=== PATIENT | female | born 1975 | race Asian ===

== ENCOUNTER → 2017-06-26 | Outpatient (CLI) | payer OTHER | END | disposition home or self-care (01) | LOC: KCIC MAMMO 14:39 | DX: Z12.31 Encounter for screening mammogram for malignant neoplasm of breast (principal) | CPT/HCPCS: 77067 ==

== ENCOUNTER → 2018-07-05 | Outpatient (CLI) | payer OTHER ==
--- NOTE | 2018-07-05 11:22 | KCIC ---
Bilateral digital screening mammograms: Reason for examination: Routine screening. Comparison is made to previous studies dated 06/26/2017 and 05/12/2016. Interpretation was made with the benefit of CAD. The skin and nipples show no abnormalities. No abnormal axillary lymph nodes are seen. Bilateral breast implants remain in place. The breast parenchyma is heterogeneously dense. (Breast density: Category C.) There continues to be some nodularity to the parenchyma medially in the right breast seen on cc view which is stable. There is however suggestion of a new nodular density present laterally in the left breast on cc view measuring 6.7 mm in size. This is not definitely seen on oblique view however and could represent some superimposition of tissues. Recommend further evaluation with coned compression views and ultrasound. There are no other new dominant masses, suspicious calcifications or architectural distortion. Impression: Possible new nodule in the left breast on CC view laterally measuring 6.7 mm in size. Recommend further evaluation with coned compression views and ultrasound. Your patient's mammogram demonstrates that she has dense breast tissue (breast density category C or D), which could hide abnormalities, and if she has other risk factors for breast cancer that have been identified, she might benefit from supplemental screening tests that may be suggested by you as her ordering physician. Dense breast tissue, in and of itself, is a relatively common condition. Therefore, this information is not provided to cause undue concern, but rather to raise your awareness and to promote discussion with your patient regarding the presence of other risk factors, in addition to dense breast tissue. Your patient's mammography results will be sent to her. BI-RAD Category 0: Incomplete. Needs additional imaging evaluation. "Our facility is accredited by the [employer] Mammography [employer]." This patient's information has been entered into a reminder system for the patient to be notified with the results of her examination and a target date for the next mammogram. Electronically signed by: Kati Camacho MD (07/05/2018 11:17 AM) [id number]
== END | disposition home or self-care (01) ==
LOC: KCIC MAMMO 10:25
PROVIDERS: ATTEND Physician Assistant Surgical
DX: Z12.31 Encounter for screening mammogram for malignant neoplasm of breast (principal)
CPT/HCPCS: 77067

== ENCOUNTER → 2018-08-16 | Outpatient (CLI) | payer OTHER ==
--- NOTE | 2018-08-16 14:00 | KCIC ---
Left breast diagnostic digital mammograms: Reason for examination: Nodular density on screening mammogram. Comparison is made to mammographic exam dated 07/05/2018. Coned compression views were obtained of the left breast in CC projection with implant displacement. There is dense fibroglandular tissue. Nodularity seen previously is not reproduced. A nodule could however be obscured by the overall density of the parenchyma. IMPRESSION: Dense fibroglandular tissue. No discrete nodule seen with the additional views. Ultrasound to follow. BI-RADS Category 0: Incomplete. Needs additional imaging evaluation. Left breast ultrasound: Ultrasound examination was performed of the lateral left breast and axilla. At the 3:00 position 7 cm from the nipple, there is a small 7.1 mm hypoechoic fibrocystic type lesion. This would appear to correspond with the area of mammographic concern. No other cystic or solid lesions are seen. No abnormal appearing lymph nodes are seen in the axilla. IMPRESSION: Small fibrocystic lesion at the 3:00 position measuring 7.1 mm in greatest dimension. Recommend reevaluation in 6 months with ultrasound. BI-RADS Category 3: Probably Benign. "Our facility is accredited by the [employer] Mammography [employer]." This patient's information has been entered into a reminder system for the patient to be notified with the results of her examination and a target date for the next mammogram. Electronically signed by: Kati Camacho MD (08/16/2018 1:57 PM) [id number]
== END | disposition home or self-care (01) ==
LOC: KCIC MAMMO 13:05
PROVIDERS: ATTEND Physician Assistant Surgical
DX: N64.89 Other specified disorders of breast (principal)
CPT/HCPCS: 76641; 77065

== ENCOUNTER → 2019-02-07 | Outpatient (CLI) | payer OTHER ==
--- NOTE | 2019-02-07 13:27 | KCIC ---
Left breast ultrasound: Reason for examination: Follow-up nodule. Comparison is made to previous study dated 08/16/2018. Ultrasound examination of the left breast was performed with attention to the area of previous concern and the left axilla. At the 3:00 position 7 cm from the nipple, there continues to be a small hypoechoic lesion in parallel orientation measuring 8.2 x 5.9 mm in greatest dimensions. This has a benign fibrocystic appearance. No other cystic or solid lesions are seen. No abnormal appearing lymph nodes are seen in the axilla. IMPRESSION: Benign-appearing fibrocystic lesion persists at the 3:00 position. Recommend continued 6 month sonographic follow-up to be performed at the time of bilateral mammograms. BI-RADS Category 3: Probably Benign. "Our facility is accredited by the [employer] Mammography [employer]." This patient's information has been entered into a reminder system for the patient to be notified with the results of her examination and a target date for the next mammogram. Electronically signed by: Kati Camacho MD (02/07/2019 1:24 PM) [id number]
== END | disposition home or self-care (01) ==
LOC: KCIC US 12:52
PROVIDERS: ATTEND Physician Assistant Surgical
DX: N64.89 Other specified disorders of breast (principal)
CPT/HCPCS: 76641